=== PATIENT | male | born 1965 | race Caucasian/White ===

== ENCOUNTER → 2020-07-02 09:43 | Outpatient (CLI) | payer OTHER, SELFPAY ==
--- NOTE | ~2020-07-02 | CT_ITS ---
EXAMINATION: CT abdomen pelvis wo/w con DATE: 07/02/2020 10:52 INDICATION: Hydronephrosis TECHNIQUE: Computed tomography (CT) of the abdomen and pelvis was performed without intravenous contr ast. CT of the abdomen and pelvis was then performed with a total of 130 mL Omnipaque 350 intravenous contrast using a double-bolus technique for simultaneous opacification of the renal parenchyma and r enal collecting system. The dose-length product (DLP) was 2093.23 mGy-cm. Automated exposure control and iterative reconstruction technique were employed. COMPARISON: None FINDINGS: Minimal dependent atelectasis is present in the lung bases. The heart size is normal. There is a small sliding hiatal hernia. The liver, spleen, pancreas, gallbladder, and adrenal glands are n ormal. There is mild bilateral hydronephrosis and mild enlargement of the bilateral renal pelves with transition at the ureteropelvic junctions. There is no hydroureter. No stones are present in the kid neys, ureters, or bladder. No suspicious renal or urothelial lesion is identified. There is mild circ umferential bladder wall thickening. Colonic diverticulosis is present without evidence of diverticul itis. No pathologically enlarged abdominal or pelvic lymph nodes are identified. There is no free int raperitoneal gas or evidence of bowel obstruction. There are bilateral inguinal hernias containing fa t. Internal stabilization hardware is present in the right proximal femur. IMPRESSION: 1. Mild bilateral hydronephrosis and enlargement of the bilateral renal pelves with transition at the ureteropelvic junctions. No suspicious renal or urothelial lesion identified. 2. Mild bladder wall thickening which may be due to cystitis or chronic outlet obstruction. Reviewed, dictated and finalized at location A. ER CARE THERAPIST IMPRESSION: 1. Mild bilateral hydronephrosis and enlargement of the bilateral renal pelves with transition at the ureteropelvic junctions. No suspicious renal or urotheli al lesion identified. 2. Mild bladder wall thickening which may be due to cystitis or chronic outlet obstruction.
[2020-07-02 10:29] LABS: Estimated Glomerular Filt Rate > 60
== END ==
PROVIDERS: PCP Family Medicine; Visit Provider Family Medicine
DX: N13.30 Unspecified hydronephrosis (principal)
CPT/HCPCS: 74178; Q9967

== ENCOUNTER 2025-01-11 00:43 | Day surgery (SDC) | payer OTHER, SELFPAY ==
[2025-01-02 13:49] VITALS: BMI 36.1
--- OUTSIDE RECORDS SUMMARY | 2025-01-11 00:46 | XMS_ITS | Encounter Summary ---
Author Organization [facility] Address [address] [place] [address] Phone Care Team Providers Care Chemical Blender Name Role Phone Naveen Bear MD Primary Care Provider [phone] [phone] Reason for Visit * Reason Comments Medication Refill Encounter Details Date Type Department Care Team (Late st Contact Info) Description 12/01/2021 Refill [facility] [address] [place] [address] Naveen Bear MD [address] [address] Medication Refill Social History Tobacco Use Types Packs/Day Years Used Date Smoking Tobacco: Former Cigarettes 2 20 0 05/10/1988 - 05/10/2008 Smokeless Tobacco: Never Comments:quit 2007 Alcohol Use Standard Drinks/Week Comments Yes 0 (1 standard drink = 0.6 oz pur e alcohol) socially PHQ-2 Answer Date Recorded Total Score - Questions 1-9 0 10/29 Education Answer Date Recorded What is the highest level of school you have completed or the highest degree you have received? Associate degree: occupational, technical, or vocational program 04/19/2020 Sexually Active Control Partners Comments Yes Female Sex and Gender Information Value Date Recorded Sex Assigned at Not on file Legal Sex Male 9:57 PM CDT Gender Identity Not on file Sexual Orientation Not on file COVID-19 Exposure Response Date Recorded In the last 10 days, have brenda isaacs been in contact with someone who was confirmed or suspected to have Coronavirus/COVID-19? No / Unsure 11/17/2021 11:16 AM CDT documented as of this encounter Miscellaneous Notes * Telephone Encounter - Luz Escalante RN - 12/01/2021 1:07 PM CDT Medication failed the protocol, provider to review and approve the medication order if appropriate. Requested Prescriptions Pending Prescriptions Disp Refills ALPRAZolam (XANAX) 0.5 MG Tablet [Pharmacy Med Name: ALPRAZolam 0.5 MG Oral Tablet] 60 Tablet 0 Sig: Take 1 tablet by mouth twice daily Not Delegated - Benzodiazepines Protocol Failed - 12/01/2021 5:30 AM Failed - This refill cannot be delegated Passed - Visit with relevant provider in past 12 months or upcoming 90 days Recent Visits Date Type Provider Dept 11/05/21 Office Visit Naveen Bear MD [facility] 07/30/21 Office Visit Naveen Bear MD [facility] 02/26/21 Office Visit Nico Michelle APRN, [facility] Showing recent visits within past 365 days and meeting all other requirements Future Appointments Date Type Provider Dept 02/11/22 Appointment Naveen Bear MD [facility] Showing future appointments within next 90 days and meeting all other requirements documented in this encounter Plan of Treatment Not on file documented as of this encounter Visit Diagnoses Diagnosis Anxiety Anxiety state, unspecified documented in this encounter Additional Health Concerns Assessment Noted Time PHQ-9 Depression Total Score: 0 11/21/19 21 1:40 PM CDT documented as of this encounter Care Teams Chemical Blender Relationship Specialty Start Date End Date Naveen Bear MD [address] [address] PCP - General Family Medicine 07/17/15 documented as of this encounter
--- OUTSIDE RECORDS SUMMARY | 2025-01-11 00:46 | XMS_ITS | Referral Summary ---
Author Organization [facility] Address [address] [place] [address] Care Team Providers Care Cartridge Belt Puncher Name Role Phone Max Sanchez MD Primary Care Provider + Allergies Active Allergy Reactions Criticality Noted Date Comments Sulfa (Sulfonamide Antibiotics) Medications ALPRAZolam (XANAX) 0.5 mg tablet TAKE 1 TABLET BY MOUTH TWICE DAILY 8 Active allopurinol (ZYLOPRIM) 100 mg tablet TAKE ONE TABLET BY MOUTH ONCE DAILY 8 Active metoprolol XL (TOPROL-XL) 25 mg 24 hr tablet TAKE ONE TABLET BY MOUTH ONCE DAILY 7 Active simvastatin (ZOCOR) 20 mg tablet TAKE ONE TABLET BY MOUTH ONCE DAILY AT NIGHT 7 Active naproxen (NAPROSYN) 500 mg tabletIndication s:Pain Take 1 tablet (500 mg total) by mouth 2 (two) times a day with meals. 30 tablet 8 Active traMADol (ULTRAM) 50 mg tablet Take 1 tablet (50 mg total) by mouth every 8 (eight) hours as needed for pain. 30 tablet 8 Active albuterol HFA (PROVENTIL HFA,VENTOLIN HFA,PROAIR HFA) 90 mcg/actuation inhaler Inhale 2 puffs every 6 (six) hours as needed 1 Active ascorbic acid (VITAMIN C) 1,000 mg tablet Take by mouth Active furosemide (LASIX) 20 mg tablet Take 1 tablet (20 mg total) by mouth daily 1 Active metoprolol tartrate (LOPRESSOR) 25 mg immediate release tablet 4 Active budesonide EC (ENTOCORT EC) 3 mg 24 hr capsule 4 Active azithromycin (ZITHROMAX) 250 mg tabletIndication s:Lower respiratory infection (e.g., bronchitis, pneumonia, pneumonitis, pulmonitis),Stre ptococcus exposure Take 2 tablets the first day, then 1 tablet daily for 4 days. 6 tablet 4 Active Additional Information Patient not taking.Reported on 10/12/2024 Active Problems Problem Noted Date Diagnosed Date COVID-19 07/30/2021 Bladder wall thickening 07/21/2020 Bilateral hydronephrosis 06/22/2020 Hyperglycemia 07/16/2019 Chronic pain of left knee 01/05/2018 Chronically on benzodiazepine therapy 01/05/2018 Obesity (BMI 30-39.9) 07/14/2017 Dermatitis 01/18/2017 Elevated liver enzymes 03/25/2016 Idiopathic gout 03/25/2016 Depression 11/08/2015 Crohn's disease 11/08/2015 Essential hypertension 11/08/2015 Anxiety 07/15/2015 Hyperlipidemia 07/15/2015 Appendicitis 02/22/2014 Overview (12/05/2016): Appendicitis Social History Tobacco Use Types Packs/Day Years Used Date Smoking Tobacco: Former Smokeless Tobacco: Never Alcohol Use Standard Drinks/Week Comments Yes 0 (1 standard drink = 0.6 oz pur e alcohol) Sex and Gender Information Value Date Recorded Sex Assigned at Not on file Legal Sex Male 3:09 AM BOWLING ALLEY OPERATOR Gender Identity Not on file Sexual Orientation Not on file Last Filed Vital Signs Vital Sign Reading Time Taken Comments Blood Pressure 128/82 10/12/2024 2:06 PM BOWLING ALLEY OPERATOR Pulse 75 10/12/2024 2:06 PM BOWLING ALLEY OPERATOR Temperature 36.7 C (98 F) 10/12/2024 2:06 PM BOWLING ALLEY OPERATOR Respiratory Rate 18 10/12/2024 2:06 PM BOWLING ALLEY OPERATOR Oxygen Saturation 98% 10/12/2024 2:06 PM BOWLING ALLEY OPERATOR Inhaled Oxygen Concentration - - Weight 108.9 kg (240 lb) 10/12/2024 2:06 PM BOWLING ALLEY OPERATOR Height 170.2 cm (5' 7 ) 10/12/2024 2:06 PM BOWLING ALLEY OPERATOR Body Mass Index 37.59 10/12/2024 2:06 PM BOWLING ALLEY OPERATOR Plan of Treatment Not on file Procedures Procedure Name Priority Date/Time Associated Diagnosis Comments COLONOSCOPY 02/19/2014 12:00 AM CDT from Last 3 Months or Most Recently Relevant to Health Maintenance Results * COLONOSCOPY (02/19/2014 12:00 AM CDT) Anatomical Region Laterality Modality Other Narrative 02/19/2014 12:00 AM CDT Ordered by an unspecified provider. Procedure Note Provider, MD Leon - 02/19/2014 12:00 AM CDT PROCEDURE REPORT Patient: ANKUR SAMS Account: [id number] Room No: G609-01 : 1965 Patient Type: IP Attend.: Johanny Eaton M.D. Admit Date: 02/19/2014 Dict.: Johanny Eaton M.D. Disch. Date: NAME OF PROCEDURE: Colonoscopy with biopsy. INDICATION: Chronic diarrhea. DATE OF PROCEDURE: 02/19/2014. PRIMARY CARE PHYSICIAN: Dr. Naveen Bear. BRIEF HISTORY AND PHYSICAL: The patient is a 48-year-old white malewith chronic diarrhea for several years but worse over the last few months.No weight loss. One time he noticed blood in the stool. Colonoscopy isbeing done for evaluation. PROCEDURE: Sedation was provided by Anesthesia Service. The procedureof colonoscopy including indications and possible complications ofbleeding, infection and perforation requiring surgery were discussed with thepatient and consent was obtained. Rectal examination prior to the colonoscopy was unremarkable. The scope was introduced to the rectum and advanced to thececum which was identified by the ileocecal valve and appendiceal orifice.The quality of the colon preparation was excellent. The terminal ileum was intubated and appeared normal. The cecum,ascending colon and transverse colon were normal. The descending colon was normal.The sigmoid colon was normal except for two pedunculated polyps notedapproximately 12 millimeters in size and 8 millimeters in size each, both were removedby hot snare technique. Minor bleeding noted from a burning point close to thefirst polypectomy site and closed with endoscopic clip placement. The rectum appeared normal and retroflexion in the rectum showed small internal hemorrhoids. IMPRESSION: 1. Two pedunculated polyps, 12 millimeters and 8 millimeters size,status post polypectomy. 2. Normal colonoscopy, otherwise. Random colon biopsy was performed. 3. Small internal hemorrhoids. RECOMMENDATIONS: 1. Follow pathology report. 2. Follow up in office in 4-5 weeks. 3. Trial of dicyclomine 10 mg three x daily before meals and the patientmay continue to use Imodium or Lomotil as needed for diarrhea as well. Johanny Eaton M.D. LANDON/emeli TD: 02/20/2014 11:20 CC: Naveen Bear M.D., M.P.H. Authenticated by Johanny Eaton MD On 03/01/2014 12:28:05 PM Historical Provider ENDOSCOPY PROCEDURES Brenna l Result from Last 3 Months or Most Recently Relevant to Health Maintenance Insurance [employer] HEALTH[employer]ARE [facility] OPEN ACCESS Care Teams Cartridge Belt Puncher Relationship Specialty Start Date End Date Max Sanchez MD [address] [place] [address] PCP - General Internal Medicine 01/27/24
--- OUTSIDE RECORDS SUMMARY | 2025-01-11 00:46 | XMS_ITS | Encounter Summary ---
Author Organization [facility] Address [address] [place] [address] Phone Care Team Providers Care Surface Lay Out Technician Name Role Phone Naveen Bear MD Primary Care Provider [phone] Reason for Visit * Reason Comments Medication Refill Encounter Details Date Type Department Care Team (Late st Contact Info) Description 01/26/2021 Refill [facility] [address] [place], [place] [id number] Naveen Bear MD [address] [address] Medication Refill Social History Tobacco Use Types [...] Exposure Response Date Recorded In the last month, have you been in contact with someone who was confirmed or suspected to have Coronavirus / COVID-19? No / Unsure 01/22/2021 2:39 PM CDT documented as of this encounter Miscellaneous Notes * Telephone Encounter - Rajni Ary L, RN - 01/28/2021 2:30 PM CDT [place] PDMP 12/30/20 Medication failed the protocol, provider to review and approve the medication order if appropriate. Requested Prescriptions Pending Prescriptions Disp Refills ALPRAZolam (XANAX) 0.5 MG Tablet [Pharmacy Med Name: ALPRAZolam 0.5 MG Oral Tablet] 60 Tablet 0 Sig: Take 1 tablet by mouth twice daily healthfinch Not Delegated - Psychiatry: Anxiolytics/Hypnotics Failed - 01/28/2021 2:30 PM Failed - This refill cannot be delegated Passed - Valid encounter within last 6 months Past Office Visits Recent Outpatient Visits 2 months ago Skin lesions [facility] Naveen Erickson MD 9 months ago Essential hypertension [facility] Naveen Erickson MD 1 year ago Hyperlipidemia, unspecified hyperlipidemia type [facility] Naveen Erickson MD 2 years ago [facility]lipidemia[facility] unspecified [facility] Upcoming Appointments Future Appointments In 3 months Naveen Bear MD [facility] CARD CLERK - Recent and Past Visits Recent Visits Date Type Provider Dept 11/20/20 Office Visit Naveen Bear MD [facility] 04/19/20 Office Visit Naveen Bear MD [facility] Showing recent visits within past 460 days with a meds authorizing provider and meeting all other requirements Future Appointments No visits were found meeting these conditions. Showing future appointments within next 90 days with a meds authorizing provider and meeting all other requirements metoprolol Succinate (TOPROL-XL) 25 MG TABLET SR 24 HR [Pharmacy Med Name: Metoprolol Succinate ER 25 MG Oral Tablet Extended Release 24 Hour] 90 Tablet 0 Sig: Take 1 tablet by mouth once daily Beta-Blockers Protocol Passed - 01/28/2021 2:30 PM Passed - BP on record in the past year Clinician-entered: BP Readings from Last 3 Encounters: 01/22/21 142/88 01/03/21 127/76 12/31/20 140/90 Patient-entered: No data recorded Passed - Visit with relevant provider in past 12 months or upcoming 90 days Recent Visits Date Type Provider Dept 11/20/20 Office Visit Naveen Bear MD [facility] 04/19/20 Office Visit Naveen Bear MD [facility] Showing recent visits within past 365 days and meeting all other requirements Future Appointments No visits were found meeting these conditions. Showing future appointments within next 90 days and meeting all other requirements documented in this encounter Plan of Treatment Not on file documented as of this encounter Visit Diagnoses Diagnosis Anxiety Anxiety state, unspecified documented in this encounter Additional Health Concerns Assessment Noted Time PHQ-9 Depression Total Score: 0 11/21/19 1:40 PM CDT documented as of this encounter Care Teams Surface Lay Out Technician Relationship Specialty Start Date End Date Naveen Bear MD [address] [address] PCP - General Family Medicine 07/17/15 documented as of this encounter
--- OUTSIDE RECORDS SUMMARY | 2025-01-11 00:46 | XMS_ITS | Encounter Summary ---
Author Organization [facility] Address [address] [place] [address] Phone Care Team Providers Care Injection Molding Machine Offbearer Name Role Phone Naveen Bear MD Primary Care Provider [phone] [phone] Reason for Visit * Reason Comments Medication Refill Encounter Details Date Type Department Care Team (Late st Contact Info) Description 07/29/2021 Refill [facility] [address] [place] [address] Naveen Bear MD [address] [address] Medication Refill Social History Tobacco Use Types [...] have Coronavirus / COVID-19? No / Unsure 07/30/2021 2:11 PM BACK END WEB DEVELOPER documented as of this encounter Miscellaneous Notes * Telephone Encounter - Ary Urban RN - 07/29/2021 10:23 AM CST Alprazolam 06/30/21 Medication failed the protocol, provider to review and approve the medication order if appropriate. Requested Prescriptions Pending Prescriptions Disp Refills ALPRAZolam (XANAX) 0.5 MG Tablet [Pharmacy Med Name: ALPRAZolam 0.5 MG Oral Tablet] 60 Tablet 0 Sig: Take 1 tablet by mouth twice daily There is no refill protocol information for this order metoprolol Succinate (TOPROL-XL) 25 MG TABLET SR 24 HR [Pharmacy Med Name: Metoprolol Succinate ER 25 MG Oral Tablet Extended Release 24 Hour] 90 Tablet 0 Sig: Take 1 tablet by mouth once daily Beta-Blockers Protocol Passed - 07/29/2021 10:22 AM Passed - BP on record in the past year Clinician-entered: BP Readings from Last 3 Encounters: 05/15/21 (!) 158/98 02/26/21 122/68 01/22/21 142/88 Patient-entered: No data recorded Passed - Visit with relevant provider in past 12 months or upcoming 90 days Recent Visits Date Type Provider Dept 02/26/21 Office Visit Nico Michelle APRN, [facility] 11/20/20 Office Visit Naveen Bear MD [facility] Showing recent visits within past 365 days and meeting all other requirements Future Appointments Date Type Provider Dept 07/30/21 Appointment Naveen Bear MD [facility] Showing future appointments within next 90 days and meeting all other requirements END WEB DEVELOPER documented in this encounter Plan of Treatment Not on file documented as of this encounter Visit Diagnoses Diagnosis Anxiety Anxiety state, unspecified documented in this encounter Additional Health Concerns Assessment Noted Time PHQ-9 Depression Total Score: 0 11/21/19 1:40 PM CDT documented as of this encounter Care Teams Injection Molding Machine Offbearer Relationship Specialty Start Date End Date Naveen Bear MD [address] [place] [address] PCP - General Family Medicine 07/17/15 documented as of this encounter
--- OUTSIDE RECORDS SUMMARY | 2025-01-11 00:46 | XMS_ITS | Encounter Summary ---
Author Organization [facility] Address [address] [place] [address] Phone Care Team Providers Care Foxpro Developer Name Role Phone Naveen Bear MD Primary Care Provider [phone] [phone] Reason for Visit * Reason Comments Medication Refill Encounter Details Date Type Department Care Team (Late st Contact Info) Description 09/20/2020 Refill [facility] [address] [place] [address] Naveen Bear MD [address] [address] Medication Refill Social History Tobacco Use Types Packs/Day Years Used Date Smoking Tobacco: Former Cigarettes 2 20 0 05/10/1988 - 05/10/2008 Smokeless Tobacco: Never Comments:quit 2007 Alcohol Use Standard Drinks/Week Comments Yes 0 (1 standard drink = 0.6 oz pur e alcohol) socially PHQ-2 Answer Date Recorded PHQ-2 Score 0 05/15/2019 Education Answer Date Recorded What is the [...] on file Sexual Orientation Not on file documented as of this encounter Miscellaneous Notes * Telephone Encounter - Ary Urban RN - 09/23/2020 9:11 AM CST [place] 08/24/20 Medication failed the protocol, provider to review and approve the medication order if appropriate. Requested Prescriptions Pending Prescriptions Disp Refills ALPRAZolam (XANAX) 0.5 MG Tablet [Pharmacy Med Name: ALPRAZolam 0.5 MG Oral Tablet] 60 Tab 0 Sig: Take 1 tablet by mouth twice daily Not Delegated - Psychiatry: Anxiolytics/Hypnotics Failed - 09/20/2020 6:29 PM Failed - This refill cannot be delegated Passed - Valid encounter within last 6 months Past Office Visits Recent Outpatient Visits 5 months ago Essential hypertension [facility] - Naveen Erickson MD 1 year ago Hyperlipidemia, unspecified hyperlipidemia type [facility] Naveen Erickson MD 1 year ago Hyperlipidemia, unspecified hyperlipidemia type [facility] - Naveen Erickson MD 2 years ago Essential hypertension [facility] Naveen Erickson MD 2 years ago Anxiety [facility] Naveen Erickson MD Upcoming Appointments Future Appointments In 3 months Sallie Shah MD [facility], [facility] FISHERIES INSPECTOR - Recent and Past Visits Recent Visits Date Type Provider Dept 04/19/20 Office Visit Naveen Bear MD [facility] 06/21/19 Office Visit Naveen Bear MD [facility] Showing recent visits within past 460 days with a meds authorizing provider and meeting all other requirements Future Appointments No visits were found meeting these conditions. Showing future appointments within next 90 days with a meds authorizing provider and meeting all other requirements AREA NETWORK ENGINEER documented in this encounter Plan of Treatment Not on file documented as of this encounter Visit Diagnoses Diagnosis Anxiety Anxiety state, unspecified documented in this encounter Additional Health Concerns Infection Onset Date Last Indicated Resolved Time COVID - 19 12/31/2020 12/31/2020 01/06/2021 4:02 PM CDT COVID - 19 Confirmed 12/31/2020 12/31/2020 021 12:16 AM CDT Assessment Noted Time PHQ-9 Depression Total Score: 0 06/21/20 19 3:59 PM CDT documented as of this encounter Care Teams Foxpro Developer Relationship Specialty Start Date End Date Naveen Bear MD [address] [address] PCP - General Family Medicine 07/17/15 documented as of this encounter
--- OUTSIDE RECORDS SUMMARY | 2025-01-11 00:46 | XMS_ITS | Encounter Summary ---
Author Organization [facility] Address [address] [place] [address] Phone Care Team Providers Care Wire Stitcher Name Role Phone Naveen Bear MD Primary Care Provider +1 [phone] Reason for Visit * Reason Comments Medication Refill Encounter Details Date Type Department Care Team (Late st Contact Info) Description 02/11/2020 Refill [facility] #2 [place] [address] Naveen Bear MD #[address] [address] Medication Refill Social History Tobacco Use Types Packs/Day Years Used Date Smoking Tobacco: Former Cigarettes 2 20 0 05/10/1988 - 05/10/2008 Smokeless Tobacco: Never Comments:quit 2007 Alcohol Use Standard Drinks/Week Comments Yes 0 (1 standard drink = 0.6 oz pur e alcohol) socially PHQ-2 Answer Date Recorded PHQ-2 Score 0 05/15/2019 Sex and Gender Information Value Date Recorded Sex Assigned at Not on file Legal Sex Male 9:57 PM CDT Gender Identity Not on file Sexual Orientation Not on file documented as of this encounter Miscellaneous Notes * Telephone Encounter - Leila Castaneda RN - 02/11/2020 6:24 PM CDT Requested Prescriptions Pending Prescriptions Disp Refills clonazePAM (KLONOPIN) 0.5 MG Tablet [Pharmacy Med Name: clonazePAM 0.5 MG Oral Tablet] 60 Tab 0 Sig: Take 1 tablet by mouth twice daily Not Delegated - Psychiatry: Anxiolytics - clonazepam Failed - 02/11/2020 2:05 PM Failed - Valid encounter within last 6 months Past Office Visits Recent Outpatient Visits 7 months ago Hyperlipidemia, unspecified hyperlipidemia type [facility] Naveen Bear MD 1 year ago Hyperlipidemia, unspecified hyperlipidemia type [facility] Naveen Bear MD 1 year ago Essential hypertension [facility] Naveen Bear MD 2 years ago Anxiety [facility] Naveen Bear MD 2 years ago Hyperglycemia [facility] Naveen Bear MD Upcoming Appointments Failed - This refill cannot be delegated documented in this encounter Plan of Treatment Not on file documented as of this encounter Visit Diagnoses Not on filedocumented in this encounter Additional Health Concerns Infection Onset Date Last Indicated Resolved Time COVID - 19 12/31/2020 12/31/2020 01/06/2021 4:02 PM CDT COVID - 19 Confirmed 12/31/2020 12/31/2020 021 12:16 AM CDT Assessment Noted Time PHQ-9 Depression Total Score: 0 06/21/20 19 3:59 PM CDT documented as of this encounter Care Teams Wire Stitcher Relationship Specialty Start Date End Date Naveen Bear MD [address] [address] PCP - General Family Medicine 07/17/15 documented as of this encounter
--- OUTSIDE RECORDS SUMMARY | 2025-01-11 00:46 | XMS_ITS | Encounter Summary ---
Author Organization [facility] Address [address] [place] [address] Phone Care Team Providers Care Summer Child Caregiver Name Role Phone Naveen Bear MD Primary Care Provider [phone] [phone] Reason for Visit * Reason Comments Medication Refill Encounter Details Date Type Department Care Team (Late st Contact Info) Description 05/16/2020 Refill [facility] #2 [place] [address] Naveen Bear MD #[address] [address] Medication Refill Social History Tobacco Use Types [...] degree: occupational, technical, or vocational program 04/19/2020 Sex and Gender Information Value Date Recorded Sex Assigned at Not on file Legal Sex Male 9:57 PM CDT Gender Identity Not on file Sexual Orientation Not on file COVID-19 Exposure Response Date Recorded In the last month, have you been in contact with someone who was confirmed or suspected to have Coronavirus / COVID-19? No / Unsure 04/19/2020 8:42 AM CDT documented as of this encounter Miscellaneous Notes * Telephone Encounter - Betty Middleton - 05/17/2020 11:59 AM CDT Medication failed the protocol provider to review and approve the medication order. Requested Prescriptions Pending Prescriptions Disp Refills ALPRAZolam (XANAX) 0.5 MG Tablet [Pharmacy Med Name: ALPRAZolam 0.5 MG Oral Tablet] 60 Tab 0 Sig: Take 1 Tab by mouth 2 times daily. First fill date 05/19/2020. Written Notation of Quantity: thirty Not Delegated - Psychiatry: Anxiolytics/Hypnotics Failed - 05/16/2020 6:40 PM Failed - This refill cannot be delegated Passed - Valid encounter within last 6 months Past Office Visits Recent Outpatient Visits 4 weeks ago Essential hypertension [facility] Medical [facility] - Naveen Erickson MD 11 months ago Hyperlipidemia, unspecified hyperlipidemia type [facility] - Naveen Erickson MD 1 year ago Hyperlipidemia, unspecified hyperlipidemia type [facility] - Naveen Erickson MD 2 years ago Essential hypertension [facility] - Naveen Erickson MD 2 years ago Anxiety [facility] Naveen Erickson MD Upcoming Appointments APPLIED ANTHROPOLOGIST - Recent and Past Visits Recent Visits Date Type Provider Dept 04/19/20 Office Visit Naveen Bear MD [facility] 06/21/19 Office Visit [facility]aveen Bear MD [facility] Showing recent visits within past 460 days with a meds authorizing provider and meeting all other requirements Future Appointments No visits were found meeting these conditions. Showing future appointments within next 90 days with a meds authorizing provider and meeting all other requirements documented in [...] documented as of this encounter Care Teams Summer Child Caregiver Relationship Specialty Start Date End Date Naveen Bear MD #[address] [address] PCP - General Family Medicine 07/17/15 documented as of this encounter
--- OUTSIDE RECORDS SUMMARY | 2025-01-11 00:46 | XMS_ITS | Encounter Summary ---
Author Organization [facility] Address [address] [place] [address] Phone Care Team Providers Care Clinical Review Specialist Name Role Phone Naveen Bear MD Primary Care Provider [phone] [phone] Reason for Visit * Reason Comments Medication Refill Encounter Details Date Type Department Care Team (Late st Contact Info) Description 08/27/2021 Refill [facility] #2 [place] [address] Naveen Bear MD #[address] [address] Medication Refill Social History Tobacco Use Types [...] have Coronavirus / COVID-19? No / Unsure 08/09/2021 10:06 AM DATAWAREHOUSE DEVELOPER documented as of this encounter Miscellaneous Notes * Telephone Encounter - Ary Urban RN - 08/27/2021 2:58 PM CST PDMP 07/30/21 Medication failed the protocol, provider to review and approve the medication order if appropriate. Requested Prescriptions Pending Prescriptions Disp Refills ALPRAZolam (XANAX) 0.5 MG Tablet [Pharmacy Med Name: ALPRAZolam 0.5 MG Oral Tablet] 60 Tablet 0 Sig: Take 1 tablet by mouth twice daily Not Delegated - Off Protocol Failed - 08/27/2021 2:58 PM Failed - This refill cannot be delegated Passed - Visit with relevant provider in past 12 months or upcoming 90 days Recent Visits Date Type Provider Dept 07/30/21 Office Visit Naveen Bear MD [facility] 02/26/21 Office Visit Nico Michelle APRN, CABLE TENDER [facility] 11/20/20 Office Visit Naveen Bear MD [facility] Showing recent visits within past 365 days and meeting all other requirements Future Appointments Date Type Provider Dept 11/05/21 Appointment Naveen Bear MD [facility] Showing future appointments within next 90 days and meeting all other requirements WAREHOUSE DEVELOPER documented in this encounter Plan of Treatment Not on file documented as of this encounter Visit Diagnoses Diagnosis Anxiety Anxiety state, unspecified documented in this encounter Additional Health Concerns Assessment Noted Time PHQ-9 Depression Total Score: 0 11/21/19 21 1:40 PM CDT documented as of this encounter Care Teams Clinical Review Specialist Relationship Specialty Start Date End Date Naveen Bear MD #[address] [address] PCP - General Family Medicine 07/17/15 documented as of this encounter
--- OUTSIDE RECORDS SUMMARY | 2025-01-11 00:46 | XMS_ITS | Encounter Summary ---
Author Organization [facility] Address [address] [place] [address] Phone Care Team Providers Care Director Writing Name Role Phone Naveen Bear MD Primary Care Provider [phone] [phone] Reason for Visit * Reason Comments Medication Refill Encounter Details Date Type Department Care Team (Late st Contact Info) Description 10/26/2021 Refill [facility] #2 [place] [address] Naveen Bear MD #[address] [address] Medication Refill Social History Tobacco Use Types [...] Telephone Encounter - Ary Urban RN - 10/27/2021 12:17 PM CST Alprazolam 09/30/21 Medication failed the protocol, provider to review and approve the medication order if appropriate. Requested Prescriptions Pending Prescriptions Disp Refills metoprolol Succinate (TOPROL-XL) 25 MG TABLET SR 24 HR [Pharmacy Med Name: Metoprolol Succinate ER 25 MG Oral Tablet Extended Release 24 Hour] 90 Tablet 1 Sig: Take 1 tablet by mouth once daily Beta-Blockers Protocol Passed - 10/26/2021 9:30 AM Passed - BP on record in the past year Clinician-entered: BP Readings from Last 3 Encounters: 07/30/21 124/68 05/15/21 (!) 158/98 02/26/21 122/68 Patient-entered: No data recorded Passed - Visit with relevant provider in past 12 months or upcoming 90 days Recent Visits Date Type Provider Dept 07/30/21 Office Visit Naveen Bear MD [facility] 02/26/21 Office Visit Nico Michelle APRN, DEN[facility] 11/20/20 Office Visit Naveen Bear MD [facility] Showing recent visits within past 365 days and meeting all other requirements Future Appointments Date Type Provider Dept 11/05/21 Appointment Naveen Bear MD [facility] Showing future appointments within next 90 days and meeting all other requirements ALPRAZolam (XANAX) 0.5 MG Tablet [Pharmacy Med Name: ALPRAZolam 0.5 MG Oral Tablet] 60 Tablet 0 Sig: Take 1 tablet by mouth twice daily There is no refill protocol information for this order T STUFFER documented in this encounter Plan of Treatment Not on file documented as of this encounter Visit Diagnoses Diagnosis Anxiety Anxiety state, unspecified documented in this encounter Additional Health Concerns Assessment Noted Time PHQ-9 Depression Total Score: 0 11/21/19 21 1:40 PM CDT documented as of this encounter Care Teams Director Writing Relationship Specialty Start Date End Date Naveen Bear MD [address] [address] PCP - General Family Medicine 07/17/15 documented as of this encounter
--- OUTSIDE RECORDS SUMMARY | 2025-01-11 00:46 | XMS_ITS | Encounter Summary ---
Author Organization [facility] Address [address] [place] [address] Phone Care Team Providers Care Brick Setter Operator Name Role Phone Naveen Bear MD Primary Care Provider [phone] [phone] Reason for Visit * Reason Comments Medication Refill Encounter Details Date Type Department Care Team (Late st Contact Info) Description 02/02/2022 Refill [facility] #2 [place] [address] Naveen Bear MD #[address] [address] Medication Refill Social History Tobacco Use Types [...] Telephone Encounter - Ary Urban RN - 02/03/2022 2:39 PM CDT PDMP 01/05/22 Medication failed the protocol, provider to review and approve the medication order if appropriate. Requested Prescriptions Pending Prescriptions Disp Refills ALPRAZolam (XANAX) 0.5 MG Tablet [Pharmacy Med Name: ALPRAZolam 0.5 MG Oral Tablet] 60 Tablet 0 Sig: Take 1 tablet by mouth twice daily Not Delegated - Benzodiazepines Protocol Failed - 02/02/2022 9:44 PM Failed - This refill cannot be delegated Passed - Visit with relevant provider in past 12 months or upcoming 90 days Recent Visits Date Type Provider Dept 11/05/21 Office Visit Naveen Bear MD [facility] 07/30/21 Office [facility] 02/26/21 Office Visit Nico Michelle APRN, GANG PUNCH OPERATOR [facility] Showing recent visits within past 365 days [...] documented as of this encounter Care Teams Brick Setter Operator Relationship Specialty Start Date End Date Naveen Bear MD #[address] [address] PCP - General Family Medicine 07/17/15 documented as of this encounter
--- OUTSIDE RECORDS SUMMARY | 2025-01-11 00:46 | XMS_ITS | Encounter Summary ---
Author Organization [facility] Address [address] [place] [address] Phone Care Team Providers Care Career Technical Education Teacher Name Role Phone Naveen Bear MD Primary Care Provider [phone] [phone] Reason for Visit * Reason Comments Medication Refill Encounter Details Date Type Department Care Team (Late st Contact Info) Description 07/17/2020 Refill [facility] #2 [place] [address] Naveen Bear MD #[address] [address] Medication Refill Social History Tobacco Use Types [...] have Coronavirus / COVID-19? No / Unsure 07/08/2020 12:45 PM COMPREHENSIVE OPHTHALMOLOGIST documented as of this encounter Miscellaneous Notes * Telephone Encounter - Libertad Gutierrez RN - 07/18/2020 7:56 AM CST Medication failed the protocol, provider to review and approve the medication order if appropriate. Requested Prescriptions Pending Prescriptions Disp Refills ALPRAZolam (XANAX) 0.5 MG Tablet [Pharmacy Med Name: ALPRAZolam 0.5 MG Oral Tablet] 60 Tab 0 Sig: Take 1 tablet by mouth twice daily Not Delegated - Psychiatry: Anxiolytics/Hypnotics Failed - 07/17/2020 5:36 PM Failed - This refill cannot be delegated Passed - Valid encounter within last 6 months Past Office Visits Recent Outpatient Visits 3 months ago Essential hypertension [facility] Medical [facility] - Naveen Erickson MD 1 year ago Hyperlipidemia, unspecified hyperlipidemia type [facility] Medical [facility] - Naveen Erickson MD 1 year ago Hyperlipidemia, unspecified hyperlipidemia type [facility] Medical [facility] - Naveen Erickson MD 2 years ago Essential hypertension [facility] Naveen Erickson MD 2 years ago Anxiety [facility] Naveen Erickson MD Upcoming Appointments Future Appointments In 5 months Sallie Shah MD [facility] UR[facility], [facility] AIR CONDITIONING SERVICE TECHNICIAN - Recent and Past Visits Recent Visits Date Type Provider Dept 04/19/20 Office Visit Naveen Bear MD [facility] 06/21/19 Office Visit Naveen Bear MD [facility] Showing recent visits within past 460 days with a meds authorizing provider and meeting all other requirements Future Appointments No visits were found meeting these conditions. Showing future appointments within next 90 days with a meds authorizing provider and meeting all other requirements REHENSIVE OPHTHALMOLOGIST documented in this encounter Plan of Treatment [...] documented as of this encounter Care Teams Career Technical Education Teacher Relationship Specialty Start Date End Date Naveen Bear MD #2 [place] [address] PCP - General Family Medicine 07/17/15 documented as of this encounter
--- OUTSIDE RECORDS SUMMARY | 2025-01-11 00:46 | XMS_ITS | Encounter Summary ---
Author Organization [facility] Address [address] [place] [address] Phone Care Team Providers Care Sample Paster Name Role Phone Naveen Bear MD Primary Care Provider [phone] [phone] Reason for Visit * Reason Comments Medication Refill Encounter Details Date Type Department Care Team (Late st Contact Info) Description 05/29/2021 Refill [facility] #2 [place] [address] Naveen Bear MD #[address] [address] Medication Refill Social History Tobacco Use Types [...] have Coronavirus / COVID-19? No / Unsure 05/15/2021 4:48 PM CDT documented as of this encounter Miscellaneous Notes * Telephone Encounter - Ary Urban RN - 05/30/2021 10:25 AM CDT [place] PDMP 04/30/21 - last appt 02/26/21 - follow up 06/30/21 Medication failed the protocol, provider to review and approve the medication order if appropriate. Requested Prescriptions Pending Prescriptions Disp Refills ALPRAZolam (XANAX) 0.5 MG Tablet [Pharmacy Med Name: ALPRAZolam 0.5 MG Oral Tablet] 60 Tablet 0 Sig: Take 1 tablet by mouth twice daily There is no refill protocol information for this order documented in this encounter Plan of Treatment Not on file documented as of this encounter Visit Diagnoses Diagnosis Anxiety Anxiety state, unspecified documented in this encounter Additional Health Concerns Assessment Noted Time PHQ-9 Depression Total Score: 0 11/21/19 21 1:40 PM CDT documented as of this encounter Care Teams Sample Paster Relationship Specialty Start Date End Date Naveen Bear MD #[address] [address] PCP - General Family Medicine 07/17/15 documented as of this encounter
--- OUTSIDE RECORDS SUMMARY | 2025-01-11 00:46 | XMS_ITS | Encounter Summary ---
Author Organization [facility] Address [address] [place] [address] Phone Care Team Providers Care Operations Project Manager Name Role Phone Naveen Bear MD Primary Care Provider [phone] [phone] Reason for Visit * Reason Comments Medication Refill Encounter Details Date Type Department Care Team (Late st Contact Info) Description 01/02/2022 Refill [facility] #2 [place] [address] Naveen Bear MD #[address] [address] Medication Refill Social History Tobacco Use Types [...] Telephone Encounter - Ary Urban RN - 01/05/2022 9:01 AM CDT PDMP 12/01/21 Medication failed the protocol, provider to review and approve the medication order if appropriate. Requested Prescriptions Pending Prescriptions Disp Refills ALPRAZolam (XANAX) 0.5 MG Tablet [Pharmacy Med Name: ALPRAZolam 0.5 MG Oral Tablet] 60 Tablet 0 Sig: Take 1 tablet by mouth twice daily Not Delegated - Benzodiazepines Protocol Failed - 01/02/2022 8:52 PM Failed - This refill cannot be delegated Passed - Visit with relevant provider in past 12 months or upcoming 90 days Recent Visits Date Type Provider Dept 11/05/21 Office Visit Naveen Bear MD [facility] 07/30/21 Office Visit Naveen Bear MD [facility] 02/26/21 Office Visit Nico Michelle APRN, METALLIC YARN SLITTING MACHINE OPERATOR [facility] Showing recent visits within past 365 days [...] documented as of this encounter Care Teams Operations Project Manager Relationship Specialty Start Date End Date Naveen Bear MD #[address] [address] PCP - General Family Medicine 07/17/15 documented as of this encounter
--- OUTSIDE RECORDS SUMMARY | 2025-01-11 00:46 | XMS_ITS | Encounter Summary ---
Author Organization [facility] Address [address] [place] [address] Phone Care Team Providers Care Reaming Machine Operator Name Role Phone Naveen Bear MD Primary Care Provider [phone] [phone] Reason for Visit * Reason Comments Medication Refill Encounter Details Date Type Department Care Team (Late st Contact Info) Description 10/25/2020 Refill [facility] [address] [place] [address] Naveen Bear MD #[address] [address] Medication Refill Social History Tobacco [...] Telephone Encounter - Ary Urban RN - 10/25/2020 10:38 AM CST [place] PDMP 09/23/20 Medication failed the protocol, provider to review and approve the medication order if appropriate. Requested Prescriptions Pending Prescriptions Disp Refills ALPRAZolam (XANAX) 0.5 MG Tablet [Pharmacy Med Name: ALPRAZolam 0.5 MG Oral Tablet] 60 Tablet 0 Sig: Take 1 tablet by mouth twice daily Not Delegated - Psychiatry: Anxiolytics/Hypnotics Failed - 10/25/2020 5:30 AM Failed - Valid encounter within last 6 months Past Office Visits Recent Outpatient Visits 6 months ago Essential hypertension [facility] Medical [facility] - Naveen Erickson MD 1 year ago Hyperlipidemia, unspecified hyperlipidemia type [facility] - Naveen Erickson MD 2 years ago Hyperlipidemia, unspecified hyperlipidemia type [facility] - Naveen Erickson MD 2 years ago Essential hypertension [facility] Naveen Erickson MD 2 years ago Anxiety [facility] Naveen Erickson MD Upcoming Appointments Future Appointments In 2 months Sallie Shah MD [facility] UROLOGY, [facility] STATION BAGGAGE AGENT - Recent and Past Visits Recent Visits Date Type Provider Dept 04/19/20 Office Visit Naveen Bear MD [facility] Showing recent visits within past 460 days with a meds authorizing provider and meeting all other requirements Future Appointments No visits were found meeting these conditions. Showing future appointments within next 90 days with a meds authorizing provider and meeting all other requirements Failed - This refill cannot be delegated ICAL RESOURCE DIRECTOR documented in this encounter Plan of Treatment [...] documented as of this encounter Care Teams Reaming Machine Operator Relationship Specialty Start Date End Date Naveen Bear MD [address] [place] [address] PCP - General Family Medicine 07/17/15 documented as of this encounter
--- OUTSIDE RECORDS SUMMARY | 2025-01-11 00:46 | XMS_ITS | Encounter Summary ---
Author Organization [facility] Address [address] [place] [address] Phone Care Team Providers Care Manager Outreach Name Role Phone Naveen Bear MD Primary Care Provider [phone] [phone] Reason for Visit * Reason Comments Medication Refill Encounter Details Date Type Department Care Team (Late st Contact Info) Description 03/13/2020 Refill [facility] - Family [facility] #2 [place] [address] Naveen Bear MD #[address] [address] Medication Refill Social History Tobacco Use Types [...] Telephone Encounter - Leila Castaneda RN - 03/15/2020 1:11 PM CDT Requested Prescriptions Pending Prescriptions Disp Refills clonazePAM (KLONOPIN) 0.5 MG Tablet [Pharmacy Med Name: clonazePAM 0.5 MG Oral Tablet] 60 Tab 0 Sig: Take 1 tablet by mouth twice daily Not Delegated - Psychiatry: Anxiolytics - clonazepam Failed - 03/13/2020 7:01 PM Failed - Valid encounter within last 6 months Past Office Visits Recent Outpatient Visits 8 months ago Hyperlipidemia, unspecified hyperlipidemia type [facility] Naveen Bear MD 1 year ago Hyperlipidemia, unspecified hyperlipidemia type [facility] Naveen Bear MD 1 year ago Essential hypertension [facility] Naveen Bear MD 2 years ago Anxiety [facility] Naveen Bear MD 2 years ago Hyperglycemia [facility] Naveen Bear MD Upcoming Appointments [...] documented as of this encounter Care Teams Manager Outreach Relationship Specialty Start Date End Date Naveen Bear MD [address] [address] PCP - General Family Medicine 07/17/15 documented as of this encounter
--- OUTSIDE RECORDS SUMMARY | 2025-01-11 00:46 | XMS_ITS | Encounter Summary ---
Author Organization [facility] Address [address] [place] [address] Phone Care Team Providers Care Turpentine Farmer Name Role Phone Naveen Bear MD Primary Care Provider [phone] [phone] Reason for Visit * Reason Comments Medication Refill Encounter Details Date Type Department Care Team (Late st Contact Info) Description 04/27/2021 Refill [facility] [address] [place] [address] Naveen Bear MD #[address] [address] Medication Refill Social History Tobacco Use Types [...] Telephone Encounter - Ary Urban RN - 04/29/2021 8:53 AM CDT [place] 03/31/21 Xanax - last appt 02/26/21 - follow up 05/21/21 Medication failed the protocol, provider to review [...] mouth once daily Beta-Blockers Protocol Passed - 04/29/2021 8:53 AM Passed - BP on record in the past year Clinician-entered: BP Readings from Last 3 Encounters: 02/26/21 122/68 01/22/21 142/88 01/03/21 127/76 Patient-entered: No data recorded Passed - Visit with relevant provider in past 12 months or upcoming 90 days Recent Visits Date Type Provider Dept 02/26/21 Office Visit Nico Michelle APN, [facility] 11/20/20 Office Visit Naveen Bear MD [facility] Showing recent visits within past 365 days and meeting all other requirements Future Appointments Date Type Provider Dept 05/21/21 Appointment Naveen Bear MD [facility] Showing [...] documented as of this encounter Care Teams Turpentine Farmer Relationship Specialty Start Date End Date Naveen Bear MD [address] [address] [place] [address] PCP - General Family Medicine 07/17/15 documented as of this encounter
--- OUTSIDE RECORDS SUMMARY | 2025-01-11 00:46 | XMS_ITS | Encounter Summary ---
Author Organization [facility] Address [address] [place] [address] Phone Care Team Providers Care Electric Scoop Operator Name Role Phone Naveen Bear MD Primary Care Provider [phone] [phone] Reason for Visit * Reason Comments Medication Refill Encounter Details Date Type Department Care Team (Late st Contact Info) Description 09/29/2021 Refill [facility] Family [facility] [address] [place] [address] Naveen Bear MD #[address] [address] Medication Refill Social History Tobacco Use Types [...] Telephone Encounter - Ary Urban RN - 09/30/2021 1:28 PM CST PDMP 08/29/21 Medication failed the protocol, provider to review and approve the medication order if appropriate. Requested Prescriptions Pending Prescriptions Disp Refills ALPRAZolam (XANAX) 0.5 MG Tablet [Pharmacy Med Name: ALPRAZolam 0.5 MG Oral Tablet] 60 Tablet 0 Sig: Take 1 tablet by mouth twice daily Not Delegated - Off Protocol Failed - 09/30/2021 1:27 PM Failed - This refill cannot be delegated Passed - Visit with relevant provider in past 12 months or upcoming 90 days Recent Visits Date Type Provider Dept 07/30/21 Office Visit Naveen Bear MD [facility] 02/26/21 Office Visit Nico Michelle APRN, [facility] 11/20/20 Office Visit Naveen Bear MD [facility] Showing recent visits within past 365 days and meeting all other requirements Future Appointments Date Type Provider Dept 11/05/21 Appointment Naveen Bear MD [facility] Showing future appointments within next 90 days and meeting all other requirements TATION WORKER documented in this encounter Plan of Treatment Not on file documented as of this encounter Visit Diagnoses Diagnosis Anxiety Anxiety state, unspecified documented in this encounter Additional Health Concerns Assessment Noted Time PHQ-9 Depression Total Score: 0 11/21/19 21 1:40 PM CDT documented as of this encounter Care Teams Electric Scoop Operator Relationship Specialty Start Date End Date Naveen Bear MD #[address] [address] PCP - General Family Medicine 07/17/15 documented as of this encounter
--- OUTSIDE RECORDS SUMMARY | 2025-01-11 00:46 | XMS_ITS | Encounter Summary ---
Author Organization [facility] Address [address] [place] [address] Phone Care Team Providers Care Junior Php Developer Name Role Phone Naveen Bear MD Primary Care Provider [phone] [phone] Reason for Visit * Reason Comments Medication Refill Encounter Details Date Type Department Care Team (Late st Contact Info) Description 12/27/2020 Refill [facility] [address] [place], [place] [id number] Naveen Bear MD #[address] [address] Medication Refill Social History Tobacco [...] have Coronavirus / COVID-19? No / Unsure 11/30/2020 9:58 AM CDT documented as of this encounter Miscellaneous Notes * Telephone Encounter - Ary Urban RN - 12/30/2020 8:56 AM CDT [place] 11/25/20 Medication failed the protocol, provider to review and approve the medication order if appropriate. Requested Prescriptions Pending Prescriptions Disp Refills ALPRAZolam (XANAX) 0.5 MG Tablet [Pharmacy Med Name: ALPRAZolam 0.5 MG Oral Tablet] 60 Tablet 0 Sig: Take 1 tablet by mouth twice daily healthfinch Not Delegated - Psychiatry: Anxiolytics/Hypnotics Failed - 12/30/2020 8:56 AM Failed - This refill cannot be delegated Passed - Valid encounter within last 6 months Past Office Visits Recent Outpatient Visits 1 month ago Skin lesions [facility] Naveen Erickson MD 8 months ago Essential hypertension [facility] Naveen Erickson MD 1 year ago Hyperlipidemia, unspecified hyperlipidemia type [facility] Naveen Rodas MD 2 years ago Hyperlipidemia, unspecified hyperlipidemia type [facility] Naveen Erickson MD 2 years ago Essential hypertension [facility] Naveen Erickson MD Upcoming Appointments Future Appointments In 1 week Sallie Shah MD [facility], [facility] In 4 months Naveen Bear MD [facility] EMBEDDED SOFTWARE DESIGN ENGINEER - Recent and Past Visits Recent Visits [...] documented as of this encounter Care Teams Junior Php Developer Relationship Specialty Start Date End Date Naveen Bear MD #[address] [address] PCP - General Family Medicine 07/17/15 documented as of this encounter
--- OUTSIDE RECORDS SUMMARY | 2025-01-11 00:46 | XMS_ITS | Encounter Summary ---
Author Organization [facility] Address [address] [place] [address] Phone Care Team Providers Care Cable Television Access Coordinator Name Role Phone Naveen Bear MD Primary Care Provider [phone] [phone] Reason for Visit * Reason Comments Medication Refill Encounter Details Date Type Department Care Team (Late st Contact Info) Description 03/29/2021 Refill [facility] #2 [place] [address] Nico Michelle APRN, CARPENTER FOREMAN #[address] [address] Medication Refill Social History Tobacco Use Types [...] Telephone Encounter - Ary Urban RN - 03/31/2021 11:19 AM CDT Last fill 02/26/21 - last appt 02/26/21 - follow up [...] documented as of this encounter Care Teams Cable Television Access Coordinator Relationship Specialty Start Date End Date Naveen Bear MD #[address] [address] PCP - General Family Medicine 07/17/15 documented as of this encounter
--- OUTSIDE RECORDS SUMMARY | 2025-01-11 00:46 | XMS_ITS | Encounter Summary ---
Author Organization [facility] Address [address] [place] [address] Phone Care Team Providers Care Roto Mixer Operator Name Role Phone Naveen Bear MD Primary Care Provider [phone] [phone] Reason for Visit * Reason Comments Medication Refill Encounter Details Date Type Department Care Team (Late st Contact Info) Description 06/15/2020 Refill [facility] [address]2 [place] [address] Naveen Bear MD #[address] [address] Medication Refill Social History Tobacco Use Types [...] have Coronavirus / COVID-19? No / Unsure 06/18/2020 8:52 AM CDT documented as of this encounter Miscellaneous Notes * Telephone Encounter - Heide Winslow RN - 06/17/2020 7:26 AM CDT Medication failed the protocol, provider to review and approve the medication order. Requested Prescriptions Pending Prescriptions Disp Refills ALPRAZolam (XANAX) 0.5 MG Tablet [Pharmacy Med Name: ALPRAZolam 0.5 MG Oral Tablet] 60 Tab 0 Sig: Take 1 tablet by mouth twice daily Not Delegated - Psychiatry: Anxiolytics/Hypnotics Failed - 06/15/2020 10:00 AM Failed - This refill cannot be delegated Passed - Valid encounter within last 6 months Past Office Visits Recent Outpatient Visits 1 month ago Essential hypertension [facility] - Naveen Eirckson MD 12 months ago Hyperlipidemia, unspecified hyperlipidemia type [facility] Medical [facility] - Naveen Erickson MD 1 year ago Hyperlipidemia, unspecified hyperlipidemia type [facility] Medical [facility] - Naveen Erickson MD 2 years ago Essential hypertension [facility] Naveen Erickson MD 2 years ago Anxiety [facility] Naveen Erickson MD Upcoming Appointments Future Appointments Tomorrow [email or web address]; [id number] Ultrasound, [facility] STRAWHAT INSPECTOR AND PACKER - Recent and Past Visits Recent Visits [...] documented as of this encounter Care Teams Roto Mixer Operator Relationship Specialty Start Date End Date Naveen Bear MD [address] [place] [address] PCP - General Family Medicine 07/17/15 documented as of this encounter
--- OUTSIDE RECORDS SUMMARY | 2025-01-11 00:46 | XMS_ITS | Clinical Summary ---
Author Organization [facility] Address [address] [place] [address] Care Team Providers Care Silk Conditioner Name Role Phone Max Sanchez MD Primary [...] Hyperlipidemia 07/15/2015 Appendicitis 02/22/2014 Overview (12/05/2016): Appendicitis Surgical History Surgery Date Site/Laterality Comments OTHER SURGICAL HISTORY Carpal tunnel release in 2007 &2008 OTHER SURGICAL HISTORY laser surgery to left eye APPENDECTOMY Appendectomy CARPAL TUNNEL RELEASE Carpal tunnel release OTHER SURGICAL HISTORY Right Repair Hip Fracture Medical History Medical History Date Comments Hypercholesterolemia High choles terol; Comments: GDS 02/28/2014 - Hypertension Hypertension Anxiety disorder Anxiety Family History Medical History Relation Name Comments COPD Mother COPD; Rheum arthritis Mother Rheumatoid a rthritis; Other Other 1 1 Other Other 2 1 Relation Name Status Comments Mother Other 1 Other 2 Social History Tobacco Use Types Packs/Day Years Used Date Smoking Tobacco: Former Smokeless Tobacco: Never Alcohol Use Standard Drinks/Week Comments Yes 0 (1 standard drink = 0.6 oz pur e alcohol) Sex and Gender Information Value Date Recorded Sex Assigned at Not on file Legal Sex Male 3:09 AM DAIRY SCIENTIST Gender Identity Not on file Sexual Orientation Not on file Obstetrics History Last Filed Vital Signs Vital Sign Reading Time Taken Comments Blood Pressure 128/82 10/12/2024 2:06 PM DAIRY SCIENTIST Pulse 75 10/12/2024 2:06 PM DAIRY SCIENTIST Temperature 36.7 C (98 F) 10/12/2024 2:06 PM DAIRY SCIENTIST Respiratory Rate 18 10/12/2024 2:06 PM DAIRY SCIENTIST Oxygen Saturation 98% 10/12/2024 2:06 PM DAIRY SCIENTIST Inhaled Oxygen Concentration - - Weight 108.9 kg (240 lb) 10/12/2024 2:06 PM DAIRY SCIENTIST Height 170.2 cm (5' 7 ) 10/12/2024 2:06 PM DAIRY SCIENTIST Body Mass Index 37.59 10/12/2024 2:06 PM DAIRY SCIENTIST Plan of Treatment Health Maintenance Due Date Last Done Comments Depression Screening 1965 Hepatitis C Screening 1965 Prostate Cancer Screening-PSA 1965 DTaP/Tdap/Td Vaccine (1 - Tdap) 1976 Hepatitis B Screening 1983 Regular Well Visit/Exam 18-64 1983 Zoster Vaccine (1 of 2) 2015 Colon Cancer Screening-Colonoscopy 02/20/2024 02/19/2014 Influenza Vaccine (#1) 2024 Colon Cancer Screening-CT Colonography Discontinued 02/19/2014 Colon Cancer Screening-DNA Stool Discontinued 02/20/20 14 Colon Cancer Screening-FIT Discontinued 02/19/2014 Colon Cancer Screening-Sigmoidoscopy Discontinued 02/19/2014 Pneumococcal vaccine <65 Aged Out No longer eligible based on patient's age to complete this topic Procedures Procedure Name Priority Date/Time Associated Diagnosis Comments COLONOSCOPY 02/19/2014 12:00 AM CDT from Last 3 Months or Most Recently Relevant to Health Maintenance Results * COLONOSCOPY (02/19/2014 12:00 AM CDT) Anatomical Region Laterality Modality Other Narrative 02/19/2014 12:00 AM CDT Ordered by an unspecified provider. Procedure Note Provider, MD Leon - 02/19/2014 12:00 AM CDT PROCEDURE REPORT Patient: ANKUR SAMS Account: [id number] Room No: G609-01 : 1965 Patient Type: [...] Lomotil as needed for diarrhea as well. Jerardo Vides/emeli TD: 02/20/2014 11:20 CC: Naveen Bear M.D., M.P.H. Authenticated by Johanny Eaton MD On 03/01/2014 12:28:05 PM us Historical Provider ENDOSCOPY PROCEDURES Brenna l Result from Last 3 Months or Most Recently Relevant to Health Maintenance Insurance [employer] motify OPEN ACCESS Care Teams Silk Conditioner Relationship Specialty Start Date End Date Max Sanchez MD [address] [place] [address] PCP - General Internal Medicine 01/27/24
--- OUTSIDE RECORDS SUMMARY | 2025-01-11 00:46 | XMS_ITS | Encounter Summary ---
Author Organization [facility] Address [address] [place] [address] Phone Care Team Providers Care Video Coordinator Name Role Phone Naveen Bear MD Primary Care Provider [phone] [phone] Reason for Visit * Reason Comments Medication Refill Encounter Details Date Type Department Care Team (Late st Contact Info) Description 06/26/2021 Refill [facility] - Family [facility] #2 [place] [address] Naveen Bear MD #[address] [address] Medication Refill Social History Tobacco Use Types [...] Miscellaneous Notes * Telephone Encounter - Luz Cuello RN - 06/27/2021 2:14 PM CDT Medication failed the protocol, provider to review and approve the medication order if appropriate. Requested Prescriptions Pending Prescriptions Disp Refills ALPRAZolam (XANAX) 0.5 MG Tablet [Pharmacy Med Name: ALPRAZolam 0.5 MG Oral Tablet] 60 Tablet 0 Sig: Take 1 tablet by mouth twice daily There is no refill protocol information for this order * Telephone Encounter - Luz Cuello RN - 06/27/2021 2:12 PM CDT [place] 05/30/2021, 30 day supply. documented in this encounter Plan of Treatment Not on file documented as of this encounter Visit Diagnoses Diagnosis Anxiety Anxiety state, unspecified documented in this encounter Additional Health Concerns Assessment Noted Time PHQ-9 Depression Total Score: 0 11/21/19 21 1:40 PM CDT documented as of this encounter Care Teams Video Coordinator Relationship Specialty Start Date End Date Naveen Bear MD #[address] [address] PCP - General Family Medicine 07/17/15 documented as of this encounter
--- OUTSIDE RECORDS SUMMARY | 2025-01-11 00:46 | XMS_ITS | Encounter Summary ---
Author Organization [facility] Address [address] [place] [address] Phone Care Team Providers Care Commissioned Fire Officer Name Role Phone Naveen Bear MD Primary Care Provider [phone] [phone] Reason for Visit * Reason Comments Medication Refill Encounter Details Date Type Department Care Team (Late st Contact Info) Description 08/22/2020 Refill [facility] [address] [place] [address] Naveen Bear MD #[address] [address] Medication Refill Social History Tobacco [...] Telephone Encounter - Ary Urban RN - 08/22/2020 10:18 AM CST [place] 07/20/20 Medication failed the protocol, provider to review and approve the medication order if appropriate. Requested Prescriptions Pending Prescriptions Disp Refills simvastatin (ZOCOR) 20 MG Tablet [Pharmacy Med Name: Simvastatin 20 MG Oral Tablet] 90 Tab 0 Sig: TAKE 1 TABLET BY MOUTH ONCE DAILY AT NIGHT Cardiovascular: Antilipid - HMG-CoA Reductase Inhibitors Passed - 08/22/2020 10:17 AM Passed - Valid encounter within last 12 months Past Office Visits Recent Outpatient Visits 4 months ago Essential hypertension [facility] - Naveen Erickson MD 1 year ago Hyperlipidemia, unspecified hyperlipidemia type [facility] Naveen Erickson MD 1 year ago Hyperlipidemia, unspecified hyperlipidemia type [facility] Naveen Erickson MD 2 years ago Essential hypertension [facility] Naveen Erickson MD 2 years ago [facility] Upcoming Appointments Future Appointments In 4 months Sallie Shah MD [facility]IAN [facility] UROLOGY, [facility] SONOSCOPE OPERATOR - Recent and Past Visits Recent Visits Date Type Provider Dept 04/19/20 Office Visit Naveen Bear MD [facility] 06/21/19 Office Visit Naveen Bear MD [facility] Showing recent visits within past 460 days with a meds authorizing provider and meeting all other requirements Future Appointments No visits were found meeting these conditions. Showing future appointments within next 90 days with a meds authorizing provider and meeting all other requirements ALPRAZolam (XANAX) 0.5 MG Tablet [Pharmacy Med Name: ALPRAZolam 0.5 MG Oral Tablet] 60 Tab 0 Sig: Take 1 tablet by mouth twice daily Not Delegated - Psychiatry: Anxiolytics/Hypnotics Failed - 08/22/2020 10:17 AM Failed - This refill cannot be delegated Passed - Valid encounter within last 6 months Past Office Visits Recent Outpatient Visits 4 months ago Essential hypertension [facility] - Naveen Erickson MD 1 year ago Hyperlipidemia, unspecified hyperlipidemia [facility]kson [facility] 1 year ago Hyperlipidemia, unspecified hyperlipidemia [facility] - Naveen Erickson MD 2 years ago [facility] Naveen Erickson MD 2 years ago Anxiety [facility] Naveen Erickson MD Upcoming Appointments Future Appointments In 4 months Sallie Shah MD [facility] UROLOGY, [facility] SONOSCOPE OPERATOR - Recent and Past Visits Recent Visits Date Type Provider Dept 04/19/20 Office Visit Naveen Bear MD [facility] 06/21/19 Office Visit Naveen Bear MD [facility] Showing recent visits within past 460 days with a meds authorizing provider and meeting all other requirements Future Appointments No visits were found meeting these conditions. Showing future appointments within next 90 days with a meds authorizing provider and meeting all other requirements DING RENTAL SUPERINTENDENT documented in this encounter Plan of Treatment Not on file documented as of this encounter Visit Diagnoses Diagnosis Anxiety- Primary Anxiety state, unspecified documented in this encounter Additional Health Concerns Infection Onset Date Last Indicated Resolved Time COVID - 19 12/31/2020 12/31/2020 01/06/2021 4:02 PM CDT COVID - 19 Confirmed 12/31/2020 12/31/2020 021 12:16 AM CDT Assessment Noted Time PHQ-9 Depression Total Score: 0 06/21/20 19 3:59 PM CDT documented as of this encounter Care Teams Commissioned Fire Officer Relationship Specialty Start Date End Date Naveen Bear MD #[address] [address] PCP - General Family Medicine 07/17/15 documented as of this encounter
--- OUTSIDE RECORDS SUMMARY | 2025-01-11 00:47 | XMS_ITS | Clinical Summary ---
Author Organization [facility] Address [address] [place] [address] Phone Care Team Providers Care Pull Worker Name Role Phone Naveen Bear MD Primary Care Provider [phone] [phone] Allergies Active Allergy Reactions Criticality Noted Date Comments Sulfa Antibiotics Unknown 07/17/2015 As baby, unsure Medications Aspirin 81 MG Tablet Take 81 mg by mouth daily. Active Zinc Sulfate (ZINC-220 PO) Take by mouth. A ctive Ascorbic Acid (Vitamin C) 1000 MG Tablet Take by mouth. Active Caribou-3 Fatty Acids (fish oil) 1200 MG Capsule Take 1 Cap by mouth daily. 90 Cap 3 0 Active albuterol 108 (90 Base) MCG/ACT Aerosol Solution take 2 Puffs by inhalation every 6 hours as needed for Cough. 1 Inhaler 1 Active furosemide (LASIX) 20 MG TabletIndicatio ns:Bilateral lower extremity edema Take 1 Tablet by mouth daily. 14 Tablet 1 Active potassium chloride CR (KLORCON) 10 MEQ Tablet Controlled ReleaseIndicati ons:Bilateral lower extremity edema Take 1 Tablet by mouth daily. 14 Tablet 1 Active simvastatin (ZOCOR) 20 MG Tablet TAKE 1 TABLET BY MOUTH ONCE DAILY AT NIGHT 90 Tablet 3 1 Active ALPRAZolam (XANAX) 0.5 MG TabletIndicatio ns:Anxiety Take 1 tablet by mouth twice daily 60 Tablet 2 Active allopurinol (ZYLOPRIM) 100 MG Tablet Take 1 tablet by mouth once daily 90 Tablet 1 2 Active metoprolol Succinate (TOPROL-XL) 25 MG TABLET SR 24 HR Take 1 Tablet by mouth daily. 90 Tablet 2 Active Active Problems Problem Noted Date Diagnosed Date Elevated vitamin B12 level 07/30/2021 COVID-19 07/30/2021 Chronic prescription benzodiazepine use 11/21/19 Skin lesions 11/20/2020 Bladder wall thickening 07/21/2020 Bilateral hydronephrosis 07/21/2020 Hydronephrosis 06/22/2020 Ex-smoker 04/19/2020 Hyperglycemia 07/16/2019 History of colon polyps 06/21/2019 Rash 06/21/2019 Chronically on benzodiazepine therapy 01/05/2018 Chronic pain of left knee 01/05/2018 Obesity (BMI 30-39.9) 07/14/2017 Dermatitis 01/18/2017 Elevated liver enzymes 03/25/2016 Idiopathic gout 03/25/2016 Essential hypertension 11/08/2015 Depression 11/08/2015 Crohn's disease 11/08/2015 Hyperlipidemia 07/15/2015 Anxiety 07/15/2015 Resolved Problems Problem Noted Date Diagnosed Date Resolved Date Overweight (BMI 25.0-29.9) 03/25/2016 1 09/13/2016 Family History Medical History Relation Name Comments Cancer Brother throat Cancer Maternal Aunt Diabetes Maternal Grandfather Heart Attack Maternal Grandfather Diabetes Maternal Grandmother Cancer Maternal Uncle Arthritis Mother Depression Mother Relation Name Status Comments Brother Father Maternal Aunt Maternal Grandfather Maternal Grandmother Maternal Uncle Mother Alive Social History Tobacco Use Types Packs/Day Years Used Date Smoking Tobacco: Former Cigarettes 2 20 0 05/10/1988 - 05/10/2008 Smokeless Tobacco: Never Tobacco Cessation:Counseling Given: Yes Comments:quit 2007 Alcohol Use Standard Drinks/Week Comments [...] Sign Reading Time Taken Comments Blood Pressure 124/64 11/05/2021 1:23 PM DEDICATED OWNER OPERATOR Pulse 79 11/05/2021 1:23 PM DEDICATED OWNER OPERATOR Temperature 36.4 C (97.6 F) 11/05/2021 1:23 PM DEDICATED OWNER OPERATOR Respiratory Rate 16 11/05/2021 1:23 PM DEDICATED OWNER OPERATOR Oxygen Saturation 96% 11/05/2021 1:23 PM DEDICATED OWNER OPERATOR Inhaled Oxygen Concentration - - Weight 103.2 kg (227 lb 8 oz) 11/05/2021 1:23 PM DEDICATED OWNER OPERATOR Height 170.2 cm (5' 7 ) 11/05/2021 1:23 PM DEDICATED OWNER OPERATOR Body Mass Index 35.63 11/05/2021 1:23 PM DEDICATED OWNER OPERATOR Plan of Treatment Health Maintenance Due Date Last Done Comments TdaP Immunization 1965 Hepatitis B Immunization (1 of 3 - 19+ 3-dose series) 1984 Cologuard 2015 Immunochemical Fecal Occult Blood 2015 Pneumococcal Immunization (50+ years) (1 of 1 - PCV) 2015 Zoster Immunization (1 of 2) 2015 Influenza Immunization (#1) 2024 SARS-COV-2 Immunization ( - 2023- season) 2024 Colonoscopy 09/04/2024 09/04/2019, 02/19/2014 Colorectal Cancer Screening 09/04/2024 Respiratory Syncytial Virus (RSV) Immunization (Adult) (1 - 1-dose 75+ series) 2040 09/04/2019, 02/19/2014 Hepatitis C Virus (HCV) Screening Completed 07/14/2017 PSA Discussion Completed 08/09/2021, 03/31, 10/12/2018, Additional history exists Meningococcal Immunization (ACWY) Aged Out No longer eligible based on patient's age to complete this topic Rotavirus Immunization Aged Out No lo nger eligible based on patient's age to complete this topic Procedures Procedure Name Priority Date/Time Associated Diagnosis Comments PSA SCREEN Routine 08/09/2021 10:10 AM DEDICATED OWNER OPERATOR Screening for prostate cancer HEPATITIS C ANTIBODY Routine 07/14/2017 2:03 PM DEDICATED OWNER OPERATOR Encounter for hepatitis C screening test for low risk patient HM COLONOSCOPY Routine 02/19/2014 from Last 3 Months or Most Recently Relevant to Health Maintenance Results * PSA SCREEN (08/09/2021 10:10 AM DEDICATED OWNER OPERATOR) Pathologist [facility] PSA SCREEN, TOTAL 2.78 <=4.00 ng/mL 08/09/2021 11:31 AM DEDICATED OWNER OPERATOR [facility] Blood Venipuncture / Unknown 08/09/2021 10:10 AM DEDICATED OWNER OPERATOR 08/09/2021 10:54 AM DEDICATED OWNER OPERATOR Narrative [facility] - 08/09/2021 11:31 AM DEDICATED OWNER OPERATOR PSA NOTE: The PSA value should be used in conjunction with information available from clinical evaluation and other diagnostic procedures. Naveen Bear MD CHEMISTRY ORDERABLES Brenna l Result Performing Organization Address [facility] Co de Phone Number [facility] [address] [place] [address] * HEPATITIS C ANTIBODY (07/14/2017 2:03 PM DEDICATED OWNER OPERATOR) [facility] hepatitis C antibody 0.07 <1 S/CO 07/15/2017 2:06 AM DEDICATED OWNER OPERATOR [facility] Comment: Signal/Cutoff ratio < 0.79 is Nondetected Signal/Cutoff ratio 0.80-0.99 is Grayzone Signal/Cutoff ratio > 0.99 is Detected Supplemental assays are recommended if signal/cutoff ratio is >/=1.00. Signal/cutoff ratio result >/= 5.00 is 97% predictive of positivity for recombinant immunoblot assay (RIBA) and will be reported to the [place] Department of Public [facility] as required. Blood specimen (specimen) Venipuncture / Unknown 07/14/2017 2:03 PM DEDICATED OWNER OPERATOR 07/14/2017 2:03 PM DEDICATED OWNER OPERATOR Naveen Bear MD CHEMISTRY ORDERABLES Brenna l Result Performing Organization Address City/[facility]/ZIP Co de Phone Number [facility] [address] [place] [address], * COLONOSCOPY (02/19/2014) Johanny Eaton MD PROCEDURE/MINOR SURGICAL OR DERABLES Final Result from Last 3 Months or Most Recently Relevant to Health Maintenance Insurance [employer] Care Teams Pull Worker Relationship Specialty Start Date End Date Naveen Bear MD [address] [address] PCP - General Family Medicine 07/17/15
--- OUTSIDE RECORDS SUMMARY | 2025-01-11 00:47 | XMS_ITS | Encounter Summary ---
Author Organization [facility] Address [address] [facility] [address] [place] [address] Care Team Providers Care Teacher Of The Sight Impaired Name Role Phone Naveen Bear MD Primary Care Provider [phone] [phone] Naveen Bear MD Primary Care Provider [phone] [phone] Max Sanchez MD Primary Care Provider + Encounter Details Date Type Department Care Team (Late st Contact Info) Description 02/24/2014 Orders Only [facility] [place] Management [address] [place] [address] Scanning, Provider Social History Tobacco Use Types Packs/Day Years Used Date Smoking Tobacco: Never Assessed Sex and Gender Information Value Date Recorded Sex Assigned at Not on file Legal Sex Male 3:09 AM CLERK GENERAL Gender Identity Not on file Sexual Orientation Not on file documented as of this encounter Plan of Treatment Not on file documented as of this encounter Procedures Procedure Name Priority Date/Time Associated Diagnosis Comments SCAN - RADIOLOGY/IMAGING 02/24/2014 documented in this encounter Results * SCAN - RADIOLOGY/IMAGING (02/24/2014) Anatomical Region Laterality Modality Other us Provider Scanning Final Result documented in this encounter Visit Diagnoses Not on filedocumented in this encounter Additional Health Concerns Infection Onset Date Last Indicated Resolved Time COVID: Suspected 08/21/2024 08/21/2024 08/22/2024 3:05 AM CLERK GENERAL COVID: Suspected 10/12/2024 10/12/2024 10/12/2024 2:30 PM CLERK GENERAL Influenza, adult 10/12/2024 10/12/2024 10/19/2024 3:05 AM CLERK GENERAL documented as of this encounter Care Teams Teacher Of The Sight Impaired Relationship Specialty Start Date End Date Naveen Bear MD 2 [facility] [address] [address] PCP - General 02/28/14 01/26/24 Naveen Bear MD 2 [facility] [address] [address] PCP - General 09/27/13 02/27/14 Max Sanchez MD [address] [address] [facility] [place] [address] PCP - General Internal Medicine 01/27/24 documented as of this encounter
--- OUTSIDE RECORDS SUMMARY | 2025-01-11 00:47 | XMS_ITS | Encounter Summary ---
Author Organization [facility] Address [address] [facility] [address] [place] [address] Care Team Providers Care Change Management Lead Name Role Phone Naveen Bear MD Primary Care Provider [phone] [phone] Naveen Bear MD Primary Care Provider Max Sanchez MD Primary Care Provider + Encounter Details Date Type Department Care Team (Late st Contact Info) Description 02/22/2014 Orders Only [facility] Health Information Management [address] [place] [address] Scanning, Provider Social History Tobacco Use Types Packs/Day Years Used Date Smoking Tobacco: Never Assessed Sex and Gender Information Value Date Recorded Sex Assigned at Not on file Legal Sex Male 3:09 AM SENIOR ERP CONSULTANT Gender Identity Not on file Sexual Orientation Not on file documented as of this encounter Plan of Treatment Not on file documented as of this encounter Procedures Procedure Name Priority Date/Time Associated Diagnosis Comments SCAN - RADIOLOGY/IMAGING 02/22/2014 SCAN - PATHOLOGY 02/22/2014 documented in this encounter Results * SCAN - PATHOLOGY (02/22/2014) us Provider Scanning Final Result * SCAN - RADIOLOGY/IMAGING (02/22/2014) Anatomical Region Laterality Modality Other us Provider Scanning Edited Result - Final documented in this encounter Visit Diagnoses Not on filedocumented in this encounter Additional Health Concerns Infection Onset Date Last Indicated Resolved Time COVID: Suspected 08/21/2024 08/21/2024 08/22/2024 3:05 AM SENIOR ERP CONSULTANT COVID: Suspected 10/12/2024 10/12/2024 10/12/2024 2:30 PM SENIOR ERP CONSULTANT Influenza, adult 10/12/2024 10/12/2024 10/19/2024 3:05 AM SENIOR ERP CONSULTANT documented as of this encounter Care Teams Change Management Lead Relationship Specialty Start Date End Date Naveen Bear MD [address] [address] PCP - General 02/28/14 01/26/24 Naveen Bear MD 2 [facility] [address] [address] PCP - General 09/27/13 02/27/14 Max Sanchez MD [address] [place] [address] PCP - General Internal Medicine 01/27/24 documented as of this encounter
--- OUTSIDE RECORDS SUMMARY | 2025-01-11 00:47 | XMS_ITS | Encounter Summary ---
Author Organization [facility] Address [address] [place] [address] Phone Care Team Providers Care Field Crop Grower Name Role Phone Naveen Bear MD Primary Care Provider [phone] [phone] Reason for Visit * Reason Comments Medication Refill Encounter Details Date Type Department Care Team (Late st Contact Info) Description 11/19/2020 Refill [facility] [address] [place], [place] [address] Naveen Bear MD [address] [address] Medication Refill Social History Tobacco [...] have Coronavirus / COVID-19? No / Unsure 11/20/2020 1:31 PM CDT documented as of this encounter Miscellaneous Notes * Telephone Encounter - Ary Urban Janie RN - 11/20/2020 3:58 PM CDT JOE 11/20/20 Today - [place] 10/26/20 - next fill date 11/25/20 Medication failed the protocol, provider to review and approve the medication order if appropriate. Requested Prescriptions Pending Prescriptions Disp Refills simvastatin (ZOCOR) 20 MG Tablet [Pharmacy Med Name: Simvastatin 20 MG Oral Tablet] 90 Tablet 0 Sig: TAKE 1 TABLET BY MOUTH ONCE DAILY AT NIGHT Cardiovascular: Antilipid - HMG-CoA Reductase Inhibitors Passed - 11/19/2020 7:44 PM Passed - Valid encounter within last 12 months Past Office Visits Recent Outpatient Visits Today Skin lesions [facility] Family [facility] - Naveen Erickson MD 7 months ago Essential hypertension [facility] Naveen Erickson MD 1 year ago Hyperlipidemia, unspecified hyperlipidemia type [facility] Medical [facility] - Naveen Erickson MD 2 years ago Hyperlipidemia, unspecified hyperlipidemia type [facility] Naveen Erickson MD 2 years ago Essential hypertension [facility] Naveen Erickson MD Upcoming Appointments Future Appointments In 1 month Sallie Shah MD [facility], [facility] In 6 months Naveen Bear MD [facility] INTERNET ASSESSOR - Recent and Past Visits Recent Visits Date Type Provider Dept 04/19/20 Office Visit Naveen Bear MD [facility] Showing recent visits within past 460 days with a meds authorizing provider and meeting all other requirements Today's Visits Date Type Provider Dept 11/20/20 Office Visit Naveen Bear MD [facility] Showing today's visits with a meds authorizing provider and meeting [...] Not Delegated - Psychiatry: Anxiolytics/Hypnotics Failed - 11/19/2020 7:44 PM Failed - Valid encounter within last 6 months Past Office Visits Recent Outpatient Visits Today Skin lesions [facility] Naveen Erickson MD 7 months ago Essential hypertension [facility] Naveen Erickson MD 1 year ago Hyperlipidemia, unspecified hyperlipidemia type [facility] Naveen Erickson MD 2 years ago Hyperlipidemia, unspecified hyperlipidemia type [facility] Naveen Erickson MD 2 years ago [facility]coming Appointments Future Appointments In 1 month Sallie Shah MD [facility] In 6 months Naveen Bear MD [facility] INTERNET ASSESSOR - Recent and Past Visits Recent Visits Date Type Provider Dept 04/19/20 Office Visit Naveen Bear MD [facility] Showing recent visits within past 460 days with a meds authorizing provider and meeting all other requirements Today's Visits Date Type Provider Dept 11/20/20 Office Visit Naveen Bear MD [facility] Showing today's visits with a meds authorizing provider and meeting all other requirements Future Appointments No visits were found meeting these conditions. Showing future appointments within next 90 days with a meds authorizing provider and meeting all other requirements Failed - This refill cannot be delegated * Telephone Encounter - Ary Urban RN - 11/20/2020 10:52 AM CDT OV 11/20/20 documented in this encounter Plan of Treatment [...] documented as of this encounter Care Teams Field Crop Grower Relationship Specialty Start Date End Date Naveen Bear MD [address] [address] PCP - General Family Medicine 07/17/15 documented as of this encounter
--- OUTSIDE RECORDS SUMMARY | 2025-01-11 00:47 | XMS_ITS | Encounter Summary ---
Author Organization [facility] Address [address] [place] [address] Phone Care Team Providers Care Plastic Press Operator Name Role Phone Naveen Bear MD Primary Care Provider [phone] [phone] Reason for Visit * Reason Comments Medication Refill Encounter Details Date Type Department Care Team (Late st Contact Info) Description 04/14/2020 Refill [facility] - [facility] [address] [place] [address] Naveen Bear MD [address] [address] Medication Refill Social History Tobacco Use Types [...] have Coronavirus / COVID-19? No / Unsure 04/15/2020 9:22 AM CDT documented as of this encounter Miscellaneous Notes * Telephone Encounter - Libertad Gutierrez RN - 04/15/2020 7:54 AM CDT Refill pended. Needs UDS documented in this encounter Plan of Treatment [...] documented as of this encounter Care Teams Plastic Press Operator Relationship Specialty Start Date End Date Naveen Bear MD [address] [address] PCP - General Family Medicine 07/17/15 documented as of this encounter
--- OUTSIDE RECORDS SUMMARY | 2025-01-11 00:47 | XMS_ITS | Encounter Summary ---
Author Organization [facility] Address [address] [facility] [address] [place] [address] Care Team Providers Care Plant Breeder Name Role Phone Naveen Bear MD Primary Care Provider [phone] [phone] Naveen Bear MD Primary Care Provider [phone] [phone] Max Sanchez MD Primary Care Provider + Encounter Details Date Type Department Care Team (Late st Contact Info) Description 02/20/2014 Orders Only [facility] [place] Health Information Management [address] [place] [address] Scanning, Provider Social History Tobacco Use Types Packs/Day Years Used Date Smoking Tobacco: Never Assessed Sex and Gender Information Value Date Recorded Sex Assigned at Not on file Legal Sex Male 3:09 AM HOOP COILER Gender Identity Not on file Sexual Orientation Not on file documented as of this encounter Plan of Treatment Not on file documented as of this encounter Procedures Procedure Name Priority Date/Time Associated Diagnosis Comments SCAN - RADIOLOGY/IMAGING 02/20/2014 documented in this encounter Results * SCAN - RADIOLOGY/IMAGING (02/20/2014) Anatomical Region Laterality Modality Other us Provider Scanning Final Result documented in this encounter Visit Diagnoses Not on filedocumented in this encounter Additional Health Concerns Infection Onset Date Last Indicated Resolved Time COVID: Suspected 08/21/2024 08/21/2024 08/22/2024 3:05 AM HOOP COILER COVID: Suspected 10/12/2024 10/12/2024 10/12/2024 2:30 PM HOOP COILER Influenza, adult 10/12/2024 10/12/2024 10/19/2024 3:05 AM HOOP COILER documented as of this encounter Care Teams Plant Breeder Relationship Specialty Start Date End Date Naveen Bear MD 2 [facility] [address] [address] PCP - General 02/28/14 01/26/24 Naveen Bear MD 2 [facility] [address] [address] PCP - General 09/27/13 02/27/14 Max Sanchez MD [address] [place] [address] PCP - General Internal Medicine 01/27/24 documented as of this encounter
--- OUTSIDE RECORDS SUMMARY | 2025-01-11 00:47 | XMS_ITS | Encounter Summary ---
Author Organization [facility] Address [address] [facility] [address] [place] [address] Care Team Providers Care Casework Supervisor Name Role Phone Naveen Bear MD Primary Care Provider [phone] [phone] Naveen Bear MD Primary Care Provider Max Sanchez MD Primary Care Provider + Encounter Details Date Type Department Care Team (Late st Contact Info) Description 02/19/2014 Orders Only [facility] Health Information Management [address] [place] [address] Scanning, Provider Social History Tobacco Use Types Packs/Day Years Used Date Smoking Tobacco: Never Assessed Sex and Gender Information Value Date Recorded Sex Assigned at Not on file Legal Sex Male 3:09 AM BELLHOP CAPTAIN Gender Identity Not on file Sexual Orientation Not on file documented as of this encounter Plan of Treatment Not on file documented as of this encounter Procedures Procedure Name Priority Date/Time Associated Diagnosis Comments GI - RESULT 02/19/2014 SCAN - RADIOLOGY/IMAGING 02/19/2014 SCAN - PATHOLOGY 02/19/2014 documented in this encounter Results * SCAN - PATHOLOGY (02/19/2014) us Provider Scanning Final Result * SCAN - RADIOLOGY/IMAGING (02/19/2014) Anatomical Region Laterality Modality Other us Provider Scanning Final Result * GI - RESULT (02/19/2014) Anatomical Region Laterality Modality Other us Provider Scanning Final Result documented in this encounter Visit Diagnoses Not on filedocumented in this encounter Additional Health Concerns Infection Onset Date Last Indicated Resolved Time COVID: Suspected 08/21/2024 08/21/2024 08/22/2024 3:05 AM BELLHOP CAPTAIN COVID: Suspected 10/12/2024 10/12/2024 10/12/2024 2:30 PM BELLHOP CAPTAIN Influenza, adult 10/12/2024 10/12/2024 10/19/2024 3:05 AM BELLHOP CAPTAIN documented as of this encounter Care Teams Casework Supervisor Relationship Specialty Start Date End Date Naveen Bear MD 2 [facility] [address] [address] PCP - General 02/28/14 01/26/24 Naveen Bear MD 2 [facility] [address] [address] PCP - General 09/27/13 02/27/14 Max Sanchez MD [address] [address] PCP - General Internal Medicine 01/27/24 documented as of this encounter
--- OUTSIDE RECORDS SUMMARY | 2025-01-11 00:47 | XMS_ITS | Encounter Summary ---
Author Organization [facility] Address [address] [facility] [address] [place] [address] Care Team Providers Care Die Welder Name Role Phone Naveen Bear MD Primary Care Provider [phone] [phone] Max Sanchez MD Primary Care Provider + Encounter Details Date Type Department Care Team (Late st Contact Info) Description 02/28/2014 Orders Only [facility] Health Information Management [address] [place] [address] Scanning, Provider Social History Tobacco Use Types Packs/Day Years Used Date Smoking Tobacco: Former Alcohol Use Standard Drinks/Week Comments Yes 0 (1 standard drink = 0.6 oz pur e alcohol) Sex and Gender Information Value Date Recorded Sex Assigned at Not on file Legal Sex Male 3:09 AM CONE MARKER Gender Identity Not on file Sexual Orientation Not on file documented as of this encounter Plan of Treatment Not on file documented as of this encounter Procedures Procedure Name Priority Date/Time Associated Diagnosis Comments SCAN - RADIOLOGY/IMAGING 02/28/2014 documented in this encounter Results * SCAN - RADIOLOGY/IMAGING (02/28/2014) Anatomical Region Laterality Modality Other us Provider Scanning Final Result documented in this encounter Visit Diagnoses Not on filedocumented in this encounter Additional Health Concerns Infection Onset Date Last Indicated Resolved Time COVID: Suspected 08/21/2024 08/21/2024 08/22/2024 3:05 AM CONE MARKER COVID: Suspected 10/12/2024 10/12/2024 10/12/2024 2:30 PM CONE MARKER Influenza, adult 10/12/2024 10/12/2024 10/19/2024 3:05 AM CONE MARKER documented as of this encounter Care Teams Die Welder Relationship Specialty Start Date End Date Naveen Bear MD 2 [facility] [address] [address] PCP - General 02/28/14 01/26/24 Max Sanchez MD [address] [place] [address] PCP - General Internal Medicine 01/27/24 documented as of this encounter
[2025-01-11 11:53] VITALS: BP 141/88; PULSE 73; RESP 19; TEMP 36.3; O2SAT 97; BMI 35.0
[2025-01-11] MEDS: LACTATED RINGERS 1,000 ML 150 ML IV CONT (12:02)
--- NOTE | 2025-01-11 12:18 | P.PNAN_ITS ---
Anes - Initial Pre Proc Eval Procedure: Operation Date: 01/11/25 13:00 Proposed Procedures p Colonoscopy - Hever Pedraza MD Date/Time: 01/11/25 12:18 Surgeon: Hever Pedraza MD Pre Op Diagnosis: Other specified noninfective gastroenteritis and c Patient Data Age: 59 Gender: M Height: 1.7 m Weight: 101.5 kg Last Vital Signs Temp 36.3 C L 01/11/25 11:53 Pulse 73 01/11/25 11:53 Resp 19 01/11/25 11:53 BP 141/88 H 01/11/25 11:53 Pulse Ox 97 01/11/25 11:53 O2 Del Method Room Air 01/11/25 11:53 Allergies Allergy/AdvReac Type Severity Reaction Status Date / Time Sulfa (Sulfonamide Allergy Mild Unknown Verified 01/11/25 11:51 Antibiotics) Home Medications Medication Instructions Recorded Confirmed Type omeprazole 40 mg capsule,delayed 40 mg PO DAILY laryngopharyngeal 05/16/24 01/11/25 Rx release reflux #30 caps albuterol sulfate 90 mcg/actuation 1 inh inhalation DAILY PRN 01/02/25 01/02/25 History aerosol inhaler shortness of breath alprazolam 0.5 mg tablet 0.5 mg PO BID PRN anxiety 01/02/25 01/02/25 History fluticasone propionate 50 2 spray intranasal Q12H 01/02/25 01/11/25 History mcg/actuation nasal spray,suspension metoprolol tartrate 25 mg tablet 25 mg PO DAILY 01/02/25 01/11/25 History simvastatin 20 mg tablet 20 mg PO QPM 01/02/25 01/11/25 History Patient hx anesthesia problems: none Family hx anesthesia problems: none Results Review: All pre-operative results and documents have been reviewed as part of the pre- operative evaluation. [facility] Past Medical History Medical History (Updated 01/11/25 @ 12:19 by John Gutierrez MD) Prostate CA Obesity Crohn's colitis Broken hip (~2013) IBS (irritable bowel syndrome) Social History Social History Years smoked: 20 Smoking status: Former smoker Alcohol intake: current Drinks per week: 12 Alcohol use details: 8-14 per week Substance use: never Substance use type: does not use Do You Feel Safe in your Home?: Yes Lack of Transportation: No Lack of Food: Never True Current Housing: I Do Not Have Housing Concerned About Future Housing: No Difficulty Paying Gas/Electric Bills: No Difficulty Paying for Meds: No Currently Unemployed: No Education: High School Diploma/GED Difficulty w/ Childcare or Family Care: No Living arrangements: with family Occupation/Education: occupation Spiritual care concerns: No Anes - Eval Final PreProcedure Day of Procedure 01/11/25 12:18 Patient weight: obese Heart: regular rate and rhythm Lungs: clear to auscultation Airway: Mallampati scale class II Neurological: alert and oriented Last oral intake: >/= 8 hours ASA classification: III Emergent: no Anesthetic plan: proceed Anesthesia type and monitoring: general GIVS and standard monitoring Results Review: All pre-operative results and documents have been reviewed as part of the pre- operative evaluation. Informed Consent: The patient's anesthetic plan and its attendant risks and benefits were discussed with the patient/family/POA. Questions were solicited and answers provided to the satisfaction of the patient/family/POA.
--- NOTE | 2025-01-11 12:53 | P.HP_ITS ---
H&P: HPI History of Present Illness Date/Time: 01/11/25 12:53 Chief Complaint: History of colon polyps Narrative: The patient has a history of colonic polyps, the last colonoscopy was 5 years a Review of Systems Review of Systems: All systems reviewed & are unremarkable except as noted in HPI and below PMFSH Past Medical History Medical History (Updated 01/11/25 @ 12:54 by Hever Pedraza MD) Prostate CA Obesity Crohn's colitis Broken hip (~2013) IBS (irritable bowel syndrome) Social History Social History Years smoked: 20 Smoking status: Former smoker Alcohol intake: current Drinks per week: 12 Alcohol use details: 8-14 per week Substance use: never Substance use type: does not use Do You Feel Safe in your Home?: Yes Lack of Transportation: No Lack of Food: Never True Current Housing: I Do Not Have Housing Concerned About Future Housing: No Difficulty Paying Gas/Electric Bills: No Difficulty Paying for Meds: No Currently Unemployed: No Education: High School Diploma/GED Difficulty w/ Childcare or Family Care: No Living arrangements: with family Occupation/Education: occupation Spiritual care concerns: No Meds Home Medications and Allergies Home Medications Medication Instructions Recorded Confirmed Type omeprazole 40 mg capsule,delayed 40 mg PO DAILY laryngopharyngeal 05/16/24 01/11/25 Rx release reflux #30 caps albuterol sulfate 90 mcg/actuation 1 inh inhalation DAILY PRN 01/02/25 01/02/25 History aerosol inhaler shortness of breath alprazolam 0.5 mg tablet 0.5 mg PO BID PRN anxiety 01/02/25 01/02/25 History fluticasone propionate 50 2 spray intranasal Q12H 01/02/25 01/11/25 History mcg/actuation nasal spray,suspension metoprolol tartrate 25 mg tablet 25 mg PO DAILY 01/02/25 01/11/25 History simvastatin 20 mg tablet 20 mg PO QPM 01/02/25 01/11/25 History Allergies Allergy/AdvReac Type Severity Reaction Status Date / Time Sulfa (Sulfonamide Allergy Mild Unknown Verified 01/11/25 11:51 Antibiotics) Vital Signs Vital Signs - 24 hr 01/11/25 11:53 Temperature 97.3 F L Pulse Rate 73 Respiratory Rate 19 Blood Pressure 141/88 H Pulse Oximetry 97 Oxygen Delivery Room Air Exam Const: General: cooperative and healthy appearing Resp: Effort & Inspection: normal respiratory effort and able to speak in complete sentences Auscultation: clear to auscultation bilaterally Cardio: Rate: regular rate Rhythm: regular rhythm GI: Inspection: normal to inspection GI Palp: No No hepatosplenomegaly pre sent Auscultation: normal bowel sounds Rectal Exam: deferred Skin: General skin exam: normal color Psych: Appearance: grossly normal Mental Status: mental status grossly normal Assessment and Plan Assessment and plan (1) History of colonic polyps: Code(s): Z86.0100 - Personal history of colon polyps, unspecified Status: Acute Assessment and Plan: The patient is deemed a good candidate for the procedure. Consent signed. Will proceed.
[2025-01-11 13:14] VITALS: BP 129/81; PULSE 72; RESP 20; O2SAT 98
[2025-01-11 13:24] VITALS: BP 116/79; PULSE 75; RESP 16; O2SAT 97
[2025-01-11 13:34] VITALS: BP 136/99; PULSE 72; RESP 20; O2SAT 100
== END 2025-01-11 13:47 | disposition home or self-care (01) ==
PROVIDERS: PCP Internal Medicine; Referring Provider Nurse Practitioner Adult Health; Visit Provider Internal Medicine Gastroenterology
PROC: 0DJD8ZZ Inspection of Lower Intestinal Tract, Via Natural or Artificial Opening Endoscopic (ICD-10-PCS; CPT 45378; principal; 2025-01-11 13:00)
DX: Z12.11 Encounter for screening for malignant neoplasm of colon (principal); D12.2 Benign neoplasm of ascending colon; D12.0 Benign neoplasm of cecum; D12.5 Benign neoplasm of sigmoid colon; K57.30 Diverticulosis of large intestine without perforation or abscess without bleeding; K58.9 Irritable bowel syndrome, unspecified; E66.9 Obesity, unspecified; Z68.35 Body mass index [BMI] 35.0-35.9, adult; Z79.51 Long term (current) use of inhaled steroids; Z87.891 Personal history of nicotine dependence; Z85.46 Personal history of malignant neoplasm of prostate; Z87.19 Personal history of other diseases of the digestive system
CPT/HCPCS: 45385; 88305; J2003; J2704; J7120